=== PATIENT | male | born 1960 | race Caucasian/White ===

== ENCOUNTER 2018-06-07 07:36 | Emergency (ER) | payer MEDICARE, OTHER | END 2018-06-07 09:20 | disposition home or self-care (01) | LOC: FTE 07:36 | DX: T16.1XXA Foreign body in right ear, initial encounter (principal); F17.210 Nicotine dependence, cigarettes, uncomplicated; X58.XXXA Exposure to other specified factors, initial encounter; Y92.9 Unspecified place or not applicable | CPT/HCPCS: 69200; 99282-25 ==